=== PATIENT | male | born 1980 | race Caucasian/White ===

== ENCOUNTER 2019-09-14 20:09 | Emergency (ER) | payer MEDICAID ==
[~2019-09-14] VITALS: Ht 170.2 cm; Wt 59.0 kg
[2019-09-14] MEDS ORDERED: IBUPROFEN 600MG TABLET PO STA (22:43)
[2019-09-15 12:08] VITALS: BP 120/78
== END 2019-09-15 12:08 | disposition home or self-care (01) ==
LOC: ER 20:09
DX: M79.672 Pain in left foot (principal); M79.671 Pain in right foot; S90.821A Blister (nonthermal), right foot, initial encounter; R23.4 Changes in skin texture; Z59.0 Homelessness; X58.XXXA Exposure to other specified factors, initial encounter; Y93.89 Activity, other specified; Y92.89 Other specified places as the place of occurrence of the external cause
CPT/HCPCS: 99285